=== PATIENT | female | born 1980 | race Caucasian/White ===

== ENCOUNTER 2019-05-02 12:45 | Emergency (ER) | payer SELFPAY ==
[~2019-05-02] VITALS: Ht 160 cm; Wt 64.4 kg
[2019-05-02 12:51] VITALS: BP 129/91
--- NOTE | 2019-05-02 13:03 | NUR ---
PT IS AGITATED, LEFT W/OUT BEING SEEN BY ED PROVIDER.
== END 2019-05-02 13:05 | disposition left against medical advice (07) ==
LOC: ER 12:45
DX: Z53.21 Procedure and treatment not carried out due to patient leaving prior to being seen by health care provider (principal); M79.672 Pain in left foot; M79.671 Pain in right foot; R22.43 Localized swelling, mass and lump, lower limb, bilateral

== ENCOUNTER 2019-07-28 05:17 | Emergency (ER) | payer SELFPAY ==
[~2019-07-28] VITALS: Ht 160 cm; Wt 68.0 kg
--- NOTE | 2019-07-28 05:20 | NUR ---
CALLED PT TO BE TRAIGED, NO ANSWER. WILL FOLLOW UP
--- NOTE | 2019-07-28 06:05 | NUR ---
BIBSELF C/O GENERALIZED BODY RASH X2 MONTHS. +ITCHING, +SKIN INTACT, PT STATES "THERE ATE PIGEONS LIVING IN MY PUGA, I HAVE BIRD MITE" IN ROOM AWAITING MED EVAL
--- NOTE | 2019-07-28 06:24 | NUR ---
Patient discharged to home in stable condition. Written and verbal after care instructions given. Patient verbalizes understanding of instruction.
[2019-07-28 06:26] VITALS: BP 141/81
== END 2019-07-28 06:27 | disposition home or self-care (01) ==
LOC: ER 05:23
DX: T14.8XXA Other injury of unspecified body region, initial encounter (principal); F22 Delusional disorders; Z88.2 Allergy status to sulfonamides; W57.XXXA Bitten or stung by nonvenomous insect and other nonvenomous arthropods, initial encounter; Y93.89 Activity, other specified; Y92.89 Other specified places as the place of occurrence of the external cause; Y99.8 Other external cause status

== ENCOUNTER 2019-11-09 05:45 | Emergency (ER) | payer MEDICAID ==
[~2019-11-09] VITALS: Ht 165.1 cm; Wt 56.7 kg
[2019-11-09 05:54] VITALS: BP 137/89
== END 2019-11-09 06:59 | disposition home or self-care (01) ==
LOC: ER 05:46
DX: S90.869A Insect bite (nonvenomous), unspecified foot, initial encounter (principal); L98.8 Other specified disorders of the skin and subcutaneous tissue; Z88.2 Allergy status to sulfonamides; W57.XXXA Bitten or stung by nonvenomous insect and other nonvenomous arthropods, initial encounter; Y93.89 Activity, other specified; Y92.89 Other specified places as the place of occurrence of the external cause; Y99.8 Other external cause status